=== PATIENT | male | born 1975 | race Two or more races ===

== ENCOUNTER 2025-01-04 08:53 | Emergency (ER) | payer OTHER ==
[~2025-01-04] VITALS: Ht 172.7 cm; Wt 98.4 kg
[2025-01-04] MEDS ORDERED: OMEPRAZOLE20 MG PO (10:05)
[2025-01-04] MEDS ORDERED: LOSARTAN POTASS50 MG PO (10:05)
[2025-01-04] MEDS ORDERED: METOCLOPRAMIDE HCL 5 MG/ML VIAL ONE (12:00)
[2025-01-04] MEDS ORDERED: FAMOtidine 10 MG/ML (4ML VIAL) IV PUSH ONE (12:00)
[2025-01-04] MEDS ORDERED: METOCLOPRAMIDE HCL 5 MG/ML VIAL IM ONE (12:00)
[2025-01-04] MEDS ORDERED: FAMOTIDINE/PF 20 MG/2 ML VIAL ONE (12:01)
[2025-01-04 12:32] LABS: BASO % 0.2 % (0.1-1.2); EOS # 0.04 (0.04-0.54); EOS % 0.7 % (0.7-7.0); LYMPH # 1.41 (1.18-3.74); LYMPH % 25.8 % (19.3-53.1); MEAN PLATELET VOLUME 9.60 fl (9.4-12.4); MONO # 0.44 (0.24-0.82); MONO % 8.0 % (4.7-12.5); NEUT # 3.56 (1.56-6.13); NEUT % 65.1 % (34.0-71.1); RED CELL DISTRIBUTION WIDTH 11.8 % (11.6-14.4)
[2025-01-04 12:54] LABS: ALT/SGPT 44.0 U/L (12-78); AST/SGOT 16.0 U/L (15-37); BILIRUBIN TOTAL 0.43 mg/dL (0.3-1.2); BUN CREA RATIO 17.0 (7.0-25.0); CREATININE SERUM 0.92 mg/dL (0.70-1.30); GFR 86.73; GLOBULINA 4.0 G/DL (2.4-3.5); GLUCOSE FASTING 87.0 mg/dL (65-100); OSMOLALITY SERUM 282.0 MOSM/KG (275-295)
== END 2025-01-04 13:45 | disposition home or self-care (01) ==
LOC: ER 08:53
PROVIDERS: General Practice
DX: K29.70 Gastritis, unspecified, without bleeding (principal); I10 Essential (primary) hypertension